=== PATIENT | female | born 1985 | race African-American/Black ===

== ENCOUNTER 2017-08-10 16:46 | Emergency (ER) | payer SELFPAY ==
[2017-08-10] MEDS ORDERED: Dexamethasone 4 mg/ml Vial ONE (18:08)
[2017-08-10] MEDS ORDERED: Acetaminophen 500 MG TAB ONE (18:20)
== END 2017-08-10 18:23 | disposition home or self-care (01) ==
LOC: ERS 16:46
DX: J02.0 Streptococcal pharyngitis (principal); F17.210 Nicotine dependence, cigarettes, uncomplicated
CPT/HCPCS: 87081; 87430; 87804; 96372; 99406; J1100